=== PATIENT | female | born 1965 | race Caucasian/White ===

== ENCOUNTER → 2018-06-09 | Outpatient (CLI) | payer BC ==
[2017-09-08 12:01] VITALS: BMI 31.3
[~2018-06-09] MED LIST: ALBU2SYR19 FT; ARMTHY90PT PO; BI EST TP; BIOT5000 PO; CEPH500C24 PO; CHOL100061 PO; DOCU-416 PO; ENZY1TAB9 PO; FENOFIBRATE PO; GUAI1200 PO; HYDR2TAB74 PO; IBUP-56 PO; LEVO150T72 PO; Levofloxacin PO; MULT-67 PO; NIAC500C12 PO; ONDA4TAB PO; ONDA4TAB9 PO; OXYC-373 PO; OXYC20TA12 PO; PROG100C PO; SERT-173 PO; SERT-181 PO; SERT-184 PO; TRAM-420 PO; UBID100C9 PO; [UNRECOGNIZED DRUG - CODE] ASDIRECTED; [UNRECOGNIZED DRUG - CODE] PO; [UNRECOGNIZED DRUG - OTHER] PO; [UNRECOGNIZED DRUG - OTHER] PO; [UNRECOGNIZED DRUG - OTHER] PO; [UNRECOGNIZED DRUG - OTHER] TP
--- NOTE | 2018-06-09 18:52 | RADIOLOGY IMAGING REPORT ---
FACILITY: [facility] PATIENT NAME: Alana Garcia : 1965 MR: [id number] V: [id number] EXAM DATE: ORDERING PHYSICIAN: NAHEED WANG TECHNOLOGIST: Location: [facility] [place] Patient: Alana Garcia : 1965 Visit/Account:[id number] Date of Sevice: 06/09/2018 KIDNEYS HISTORY: Right upper quadrant pain COMPARISON: None. FINDINGS: Kidneys: Right kidney- 10.6 x 4.5 x 5.4 cm with normal parenchymal thickness and echogenicity. No ultrasound evident renal mass lesion or stone. Left kidney- 11.8 x 3.9 x 4.8 cm with normal parenchymal thickness and echogenicity. No ultrasound e vident renal mass lesion or stone. Uniform and symmetric blood flow in each kidney by Doppler ultrasound. Hydronephrosis: None. Bladder: Morphologically unremarkable. Bilateral ureteric jets visualized. There is a small post vo id residual of 19 mL.. Abdominal aorta and IVC: Patent by Doppler ultrasound. IMPRESSION: Normal renal ultrasound Report Dictated By: Juan Rico at 06/09/2018 6:48 PM Report E-Signed By: Juan Rico at 06/09/2018 6:49 PM WSN:[id number]
== END ==
LOC: US 00:16
PROVIDERS: ATTEND Urology
DX: N20.2 Calculus of kidney with calculus of ureter (principal)
CPT/HCPCS: 76705

== ENCOUNTER → 2018-06-19 | Outpatient (CLI) | payer BC ==
[2017-09-08 12:01] VITALS: BMI 31.3
[~2018-06-19] MED LIST changes: +CETI-176 PO; +HYDR-385 PO; +LIPA1CAP61 PO; +LOR5/325 PO; +OXYB10TA21 PO; +PHEN200T32 PO; +TAMS0.4C25 PO
--- NOTE | 2018-06-19 14:07 | RADIOLOGY IMAGING REPORT ---
FACILITY: [facility] PATIENT NAME: Alana Garcia : 1965 MR: [id number] V: [id number] EXAM DATE: ORDERING PHYSICIAN: NAHEED WANG TECHNOLOGIST: Location: [facility] Patient: Alana Garcia : 1965 Visit/Account:[id number] Date of Sevice: 06/19/2018 ABDOMEN/PELVIS W/O CONTRAST HISTORY: Right flank pain, history of stones TECHNIQUE: Axial images acquired through the abdomen/pelvis. Coronal and sagittal reformatting also performed. No IV contrast administered. Dose Lowering Technique One of the following dose optimization techniques was utilized in the performance of this exam: Autom ated exposure control; adjustment of the mA and/or kV according to the patient's size; or use of an i terative reconstruction technique. Specific details can be referenced in the facility's radiology C T exam operational policy. COMPARISON: September 07, 2017 FINDINGS: Visualized lung bases: There is a 9 x 8 mm noncalcified nodule in the medial aspect of the left lowe r lobe best seen on image nine of series 6. Also incompletely imaged is an 8 mm noncalcified nodule in the medial aspect the right lower lobe best seen on image one of series 6 Hepatobiliary: There are postsurgical changes from a cholecystectomy. The right lobe appears promin ent measuring 23.6 cm in length similar to the prior study. Spleen: Borderline enlarged at 13.5 cm and appears slightly more prominent when compared to the prio r study at which time the spleen measured approximately 12.1 cm in length Adrenals: Negative. Pancreas: Negative. Kidneys ureters and bladder: There is a severe right hydronephrosis and severe right hydroureter seco ndary to a 9 x 4 x 5 cm calculus in the distal right ureter just proximal to the right UVJ. Two nono bstructing calculi seen in the left renal collecting system measuring up to 3 mm. Upper pole right r enal cyst measures 1.1 cm in diameter. Additional hypodensities in the kidneys are too small to osiris acterize. The bladder is decompressed not ideally evaluated Genitalia: Prior hysterectomy GI: Small calcified appendicoliths are noted although no inflammatory change seen surrounding the ap pendix. Vessels/spaces/nodes: Negative. Bones/soft tissues: Small sclerotic focus in the left ilioischial region remain stable. 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 IMPRESSION: There is a 9 x 8 mm noncalcified nodule medial aspect left lower lobe as described above in addition to an 8 mm noncalcified nodule medial aspect of the right lower lobe. For nodules this size in a low- risk patient (minimal or absent smoking history, no history of malignancy), a 3-6 month follow-up CT is recommended, then consider CT at 18-24 months. In a high risk patient, (smoking or malignancy hist ory), a CT at 3-6 months then at 18-24 months is recommended. Spleen is borderline enlarged slightly increased in size when compared the prior study There are severe right hydronephrosis and severe right hydroureter secondary to a 9 x 4 x 5 mm calcul us in the distal right ureter just proximal to the right UVJ There are two nonobstructing calculi in the left renal collecting system Report Dictated By: Malka Núñez MD at 06/19/2018 12:52 PM Report E-Signed By: Malka Núñez MD at 06/19/2018 2:03 PM WSN:[email or web address]
== END ==
LOC: CT 11:56
PROVIDERS: ATTEND Urology
DX: N13.30 Unspecified hydronephrosis (principal); N20.2 Calculus of kidney with calculus of ureter; N28.1 Cyst of kidney, acquired; Z90.79 Acquired absence of other genital organ(s); N13.4 Hydroureter
CPT/HCPCS: 74176

== ENCOUNTER 2018-06-20 09:11 | Day surgery (SDC) | payer BC ==
[2017-09-08 12:01] VITALS: Ht 170.2 cm; Wt 91.6 kg
[~2018-06-20] VITALS: Ht 170.2 cm; Wt 91.6 kg
[~2018-06-20 09:11] MED LIST changes: +FAMOTIDINE(*) 20MG/50ML PREMIX 50 ML IVPB ONE; -HYDR-385 PO; +MIDAZOLAM 2 MG/2 ML VIAL IVP ONE; +MIDAZOLAM 2 MG/2 ML VIAL IVP PRN; +NORMOSOL R SOLN(*) 1000 ML BAG 1,000 ML IV PRN; -OXYB10TA21 PO; -PHEN200T32 PO
[2018-06-20] MEDS ORDERED: IOPAMIDOL-200 50 ML VIAL IS ONE (09:14)
[2018-06-20] MEDS ORDERED: ceFAZolin(*) 1 GM VIAL 1 GM in NS(*) 0.9% 100 ML ADDVANT BAG 100 ML IVPB ONE (09:20)
[2018-06-20] MEDS ORDERED: LIDOCAINE/SOD BICARB 8.4% SYR ID ONE (09:25)
[2018-06-20 09:35] LABS: PLATELET COUNT, AUTOMATED 228 K/uL (150-450)
[2018-06-20] MEDS ORDERED: LIDOCAINE/SOD BICARB 8.4% SYR ONE (09:39)
[2018-06-20] MEDS ORDERED: ONDANSETRON 4 MG/2 ML VIAL IVP ONE ×2 (10:02→10:05)
[2018-06-20] MEDS ORDERED: HYDROmorphone HCL 2 MG/ML SDV IVP ONE ×2 (10:02→10:05)
[2018-06-20 10:18] VITALS: BP 135/81
[2018-06-20] MEDS ORDERED: DEXAMETHASONE SOD PHOS 10MG/ML ONE (11:06)
[2018-06-20] MEDS ORDERED: PROPOFOL EMUL(*) 10MG/ML 20 ML 40 ML ONE (11:06)
[2018-06-20] MEDS ORDERED: SUCCINYLCHOL CHL 200MG/10ML VL ONE (11:06)
[2018-06-20] MEDS ORDERED: BELLADONNA ALK/OPIUM 60MG SUPP PR ONE (11:24)
[2018-06-20] MEDS ORDERED: KETOROLAC 30 MG/ML VIAL ONE (11:30)
[2018-06-20] MEDS ORDERED: HYDR-385 PO (12:08)
[2018-06-20] MEDS ORDERED: DOCU-416 PO (12:08)
[2018-06-20] MEDS ORDERED: OXYB10TA21 PO (12:11)
[2018-06-20] MEDS ORDERED: TAMS0.4C25 PO (12:13)
[2018-06-20] MEDS ORDERED: PHEN200T32 PO (12:13)
--- NOTE | 2018-06-20 12:49 | RADIOLOGY IMAGING REPORT ---
FACILITY: [facility] [place] PATIENT NAME: Alana Garcia : 1965 MR: [id number] V: [id number] EXAM DATE: ORDERING PHYSICIAN: NAHEED WANG TECHNOLOGIST: Location: [facility] [place] Patient: Alana Garcia : 1965 Visit/Account:[id number] Date of Sevice: 06/20/2018 C-ARM FLUORO 1 HR HISTORY: HEMATURIA, STONE, STENT PLACEMENT COMPARISON: Hematuria and stone. Stent placement FINDINGS: DOSE: Air kerma was 20.83 mGy. Fluoroscopic images are submitted during retrograde cannulation right ureter with placement of ureter al stent. Correlate with operative note. IMPRESSION: Right ureteral stenting Report Dictated By: Bobby Herring MD at 06/20/2018 12:17 PM Report E-Signed By: Bobby Herring MD at 06/20/2018 12:45 PM WSN:[email or web address]
--- NOTE | 2018-06-20 14:28 | HISTORY AND PHYSICAL ---
DATE OF ADMISSION: June 20, 2018 CHIEF COMPLAINT Right kidney stone. HISTORY OF PRESENT ILLNESS Patient is a 52-year-old white female who had a kidney stone originally diagnosed while she was on vacation in [place]. This was in early April. CT report revealed a 3.5 x 3.8 mm distal ureteral calculus located approximately 2.5 cm above the right UVJ with hydronephrosis and hydroureter. The patient was originally seen in the Urology Clinic on 20 of May and at that time had a normal urinalysis and was asymptomatic. A renal sonogram was set up for four weeks which was performed on the , which revealed no hydronephrosis or stones. Her urinalysis was unremarkable. She was instructed to do a metabolic evaluation. However, yesterday, she began to again experience significant right renal colic with nausea and vomiting. A CT IVP was performed which revealed a 4 x 6 x 9 mm stone with significant hydronephrosis down to the stone which was still approximately 2.5 cm above the right ureteral orifice. These findings have been discussed. She is now being brought to the operating room for planned anesthetic cystoscopy and stent placement with possibly ureteroscopy. She has been informed this stone is likely impacted and been there for at least six weeks and, therefore, this increases risk of ureteral injury and a need for percutaneous stent placement for decompression. PAST MEDICAL HISTORY * Hypothyroidism. * Chronic pancreatitis. * Depression. * Kidney stones. PAST SURGICAL HISTORY * Laparoscopy. * Hysterectomy. * Oophorectomy. * Thyroid surgery. * Cholecystectomy. CURRENT MEDICATIONS * Centrum. * Zyrtec. * Levothyroxine. * Sertraline. ALLERGIES No known drug allergies. FAMILY HISTORY Noncontributory. SOCIAL HISTORY Patient is and lives in [place], [place]. She denies illicit drug abuse. REVIEW OF SYSTEMS Patient denies chest pain, shortness of breath, nausea, vomiting, fever, chills , bleeding disorder, or gross hematuria. PHYSICAL EXAMINATION GENERAL: Patient is a well-developed, well-nourished, white female in no acute distress. HEENT: Normocephalic, atraumatic. CHEST: Clear to auscultation bilaterally. CARDIOVASCULAR: Regular rate and rhythm. ABDOMEN: Soft, nontender. No masses are palpated. GENITOURINARY: Exam is deferred to the OR. EXTREMITIES: Without clubbing, cyanosis, or edema. NEUROLOGIC: Nonfocal. IMPRESSION A 52-year-old white female with a 6 x 4 x 9 mm obstructing distal right ureteral stone which has been present for at least six weeks with likely impaction. PLAN Perform anesthetic cystoscopy, possible ureteroscopy, and/or stent placement. MTDD
--- NOTE | 2018-06-20 15:40 | OPERATIVE REPORT 1 ---
EVENT DATE: June 20, 2018 SURGEON: Bobby Garza MD ANESTHESIOLOGIST: Dionicio Watts MD ANESTHESIA: General anesthetic. PREOPERATIVE DIAGNOSIS Right distal obstructing ureteral stone measuring 6 x 4 x 9 mm. POSTOPERATIVE DIAGNOSIS Right distal obstructing ureteral stone measuring 6 x 4 x 9 mm. PROCEDURES PERFORMED 1. Cystoscopy. 2. Right retrograde pyelogram. 3. Right internal double-J ureteral stent placement. ESTIMATED BLOOD LOSS Minimal. INTRAVENOUS FLUIDS Crystalloids. DRAINS A 6-Gabonese x 26 cm Contour stent on right. COMPLICATIONS None. CONDITION Patient taken to recovery room awake, in stable condition. STATEMENT OF MEDICAL NECESSITY Patient is a 52-year-old white female who was recently diagnosed with a distal 3.8 mm stone while in [place] approximately six weeks ago. She was seen in the Urology Clinic without pain and a normal urinalysis. She had a renal ultrasound performed which was normal. However, yesterday, she experienced sudden onset of pain. CT IVP revealed a 6 x 4 x 9 mm obstructing stone in the distal left ureter approximately 2.5 cm above the ureteral orifice. She had significant hydronephrosis down to the stone. She has had continued nausea and vomiting with significant renal colic symptoms requiring narcotic control. She is unable to keep down any significant p.o. fluids and, therefore, is being brought to the operating room for decompression with possible ureteroscopy. However, she was noted to be extremely hypothyroid on her preoperative evaluation and stated that she has not been taking her thyroid replacement for approximately three months. Her current TSH is approximately 45. We will, therefore, attempt to provide just renal decompression at this time and return to the operating room in approximately three weeks after her hyperthyroidism has been addressed to definitively treat her stone. DESCRIPTION OF OPERATION PERFORMED Patient was brought to the operating room. After general anesthetic was obtained, she was placed in the dorsal lithotomy position and prepped and draped in the usual sterile manner. Anesthetic cystoscopy was performed through the 21-Gabonese rigid HMI sheath and 30-degree lens. She had slit-like ureteral orifices, both effluxing clear urine. There were no other bladder lesions. The right ureteral orifice was cannulated with a 6-Gabonese opening access catheter, and a dilute mixture of water, surgical gel, and contrast was used to perform a retrograde pyelogram. She had distal filling defect consistent with her stone and a small amount of contrast material in dilated distal ureter. A double floppy wire was then used inside the lumen of the access catheter under fluoroscopic imaging. I gently manipulated around the stone and advanced to an upper pole calyx. The access catheter was removed. A 6 x 25 stent then placed; however, the proximal end was down in the UPJ, and I felt this was going to be too short of a stent. Therefore, its distal end was grasped and brought out through the meatus. A wire was placed in its lumen. This stent was removed. The wire was then backloaded into the cystoscope, and this wire was used to place a 6-Gabonese x 26 cm Contour stent. With this, she was noted to have good curling in the renal pelvis by fluoroscopy and good curling in the bladder by direct vision. At this point, her bladder was drained through the cystoscopic sheath. A B and O suppository was given at the conclusion of the case. She was awakened in the operating room and taken to the recovery area in stable condition. PLAN The plan will be to allow the patient to be discharged home today on Colace, [place], Pyridium, Ditropan XL, Flomax, and Motrin. She is to see Dr. Fermin early next week for followup of her hyperthyroidism and will plan to return to the operating room in approximately three weeks after this has been addressed for definitive stone treatment and stent removal. [*] MARLEND
[2018-06-23] MEDS ORDERED: FAMOTIDINE 20 MG TAB PO ONE (06:30)
[2018-06-23] MEDS ORDERED: MIDAZOLAM 2 MG/2 ML VIAL IVP PRN (06:30)
[2018-06-23] MEDS ORDERED: NORMOSOL R SOLN(*) 1000 ML BAG 1,000 ML IV PRN (06:30)
[2018-06-23] MEDS ORDERED: LIDOCAINE/SOD BICARB 8.4% SYR ID ONE (06:30)
== END 2018-06-20 13:00 | disposition home or self-care (01) ==
LOC: OR 09:11
PROVIDERS: ATTEND Urology
DX: N20.1 Calculus of ureter (principal); E78.00 Pure hypercholesterolemia, unspecified
CPT/HCPCS: 36415; 52005; 52332; 76000; 81001; 84443; 85025; 87088; J0330; J0690; J1100; J1170; J1885; J2250; J2405; J2704; J3490; J7050; Q9966; 82040; 82247; 82310; 82374; 82435; 82565; 82947; 84075; 84132; 84155; 84295; 84450; 84460; 84520

== ENCOUNTER 2018-07-10 00:02 | Day surgery (SDC) | payer BC ==
[2017-09-08 12:01] VITALS: Ht 171.4 cm; Wt 90.3 kg
[2018-07-08 15:21] LABS: PLATELET COUNT, AUTOMATED 234 K/uL (150-450)
--- NOTE | 2018-07-09 14:17 | HISTORY AND PHYSICAL ---
DATE OF ADMISSION: July 10, 2018 CHIEF COMPLAINT Right kidney stone with indwelling stent. HISTORY OF PRESENT ILLNESS The patient is a 52-year-old white female who was originally diagnosed with kidney stones while she was in [place] in April of this last year. When seen in the urology clinic her urinalysis was normal and she was asymptomatic. A renal ultrasound was performed on the 17 of June which revealed no hydronephrosis or kidney stones. She also had had an unremarkable urinalysis at that time. However, on the 19 of June, she experienced sudden onset of right flank pain with nausea and vomiting. CT scan revealed a 4 by 6 by 9 mm stone, approximately 2.5 cm above the right ureteral orifice with hydronephrosis. At that time she was taken to the operating room and underwent right double-J ureteral stent placement. She was also significantly hypothyroid at that point with a TSH of 45 and had been off her thyroid replacement for some time. Since then, she has resumed her thyroid replacement and has been cleared for surgery by Dr. Dubon her primary care physician. She is now being brought to the operating room for planned right ureteroscopy, exploratory laparoscopy, ESWL, and possible stent removal and/or replacement. PAST MEDICAL HISTORY * Hypothyroidism. * Chronic idiopathic pancreatitis. * Depression. * Kidney stones. PAST SURGICAL HISTORY * Laparoscopy. * Hysterectomy. * Oophorectomy. * Thyroid surgery. * Cholecystectomy. * Right ureteral stent placement. CURRENT MEDICATIONS * Levothyroxine. * Zyrtec. * Sertraline. * Multivitamins. ALLERGIES No known drug allergies. FAMILY HISTORY Noncontributory. REVIEW OF SYSTEMS The patient denies chest pain, shortness of breath, nausea, vomiting, fever, chills, productive cough, or bleeding disorders. PHYSICAL EXAMINATION GENERAL: The patient is a well-developed, well nourished white female in no acute distress. HEENT: Normocephalic/atraumatic. CHEST: Clear to auscultation bilaterally. CV: Regular rate and rhythm. ABDOMEN: Soft, nontender. No masses palpated. : Deferred to OR. EXTREMITIES: Without clubbing, cyanosis or edema. NEURO: Nonfocal. ASSESSMENT This is a 52-year-old white female with a distal 9 by 6 by 4 mm ureteral stone with indwelling ureteral stent. She is also noted to have two small stones in the left collecting system, one measuring 2 mm, and one measuring 3 mm. PLAN We will perform exploratory lithotripsy with possible stent removal and/or ureteroscopy. MARTY
[~2018-07-10] VITALS: Ht 171.4 cm; Wt 90.3 kg
[~2018-07-10 00:02] MED LIST changes: -FAMOTIDINE(*) 20MG/50ML PREMIX 50 ML IVPB ONE; +HYDR-385 PO; +HYDROmorphone HCL 2 MG/ML SDV IVP ONE; -MIDAZOLAM 2 MG/2 ML VIAL IVP ONE; -MIDAZOLAM 2 MG/2 ML VIAL IVP PRN; +MULT-67; -NORMOSOL R SOLN(*) 1000 ML BAG 1,000 ML IV PRN; +ONDANSETRON 4 MG/2 ML VIAL IVP ONE; +OXYB10TA21 PO; +PHEN200T32 PO
[2018-07-10] MEDS ORDERED: ceFAZolin(*) 1 GM VIAL 1 GM in NS(*) 0.9% 100 ML ADDVANT BAG 100 ML IVPB ONE (08:10)
[2018-07-10] MEDS ORDERED: NORMOSOL R SOLN(*) 1000 ML BAG 1,000 ML IV PRN (08:10)
[2018-07-10] MEDS ORDERED: MIDAZOLAM 2 MG/2 ML VIAL IVP PRN (08:10)
[2018-07-10] MEDS ORDERED: ceFAZolin(*) 1 GM VIAL 1 GM, GENTAMICIN(*) 80 MG/2 ML VIAL 60 MG in NS 0.9% IRRIGATION ... IR ONE (08:10)
[2018-07-10] MEDS ORDERED: FAMOTIDINE 20 MG TAB PO ONE (08:10)
[2018-07-10] MEDS ORDERED: LIDOCAINE/SOD BICARB 8.4% SYR ID ONE (08:10)
[2018-07-10] MEDS ORDERED: ONDANSETRON 4 MG/2 ML VIAL ONE (09:23)
[2018-07-10] MEDS ORDERED: fentaNYL CITR 100 MCG/2 ML AMP ONE (09:23)
[2018-07-10] MEDS ORDERED: LIDOCAINE MPF 1% 5 ML VIAL ONE (09:23)
[2018-07-10] MEDS ORDERED: PROPOFOL EMUL(*) 10MG/ML 20 ML 20 ML ONE (09:23)
[2018-07-10] MEDS ORDERED: DEXAMETHASONE SOD PHOS 10MG/ML ONE (09:23)
[2018-07-10] MEDS ORDERED: KETOROLAC 30 MG/ML VIAL ONE (09:23)
[2018-07-10 09:34] VITALS: BP 122/78
[2018-07-10] MEDS ORDERED: KETAMINE HCL-NS 50 MG/5 ML SYR ONE (10:13)
--- NOTE | 2018-07-10 10:29 | RADIOLOGY IMAGING REPORT ---
FACILITY: [facility] PATIENT NAME: Alana Garcia : 1965 MR: [id number] V: [id number] EXAM DATE: ORDERING PHYSICIAN: NAHEED WANG TECHNOLOGIST: Location: [facility] Patient: Alana Garcia : 1965 Visit/Account:[id number] Date of Sevice: 07/08/2018 ABDOMEN PELVIS ESWL CYSTO W/O HISTORY: PREOP kidney stones TECHNIQUE: Axial images acquired through the abdomen/pelvis. Coronal and sagittal reformatting also performed. No IV contrast administered. Dose Lowering Technique One of the following dose optimization techniques was utilized in the performance of this exam: Autom ated exposure control; adjustment of the mA and/or kV according to the patient's size; or use of an i terative reconstruction technique. Specific details can be referenced in the facility's radiology C T exam operational policy. COMPARISON: June 19, 2018 FINDINGS: Visualized lung bases: The previously described 9 x 8 mm noncalcified nodule medial aspect left lowe r lobe was not included on today's image slices nor was the 8 mm calcified nodule medial aspect right lower lobe Hepatobiliary: There are postsurgical changes from a cholecystectomy. Again noted is a prominent ri ght hepatic lobe Spleen: Borderline enlarged but unchanged Adrenals: Negative. Pancreas: Negative. Kidneys ureters and bladder: Since the prior examination there has been placement of a right ureteral stent with resolution of the previously noted right hydronephrosis and right hydroureter. The proxi mal pigtail of the stent is approximately 4 cm distal to the right renal pelvis. The previously note d 9 x 4 x 5 mm calculus in the distal right ureter is relatively unchanged in position and is best se en on axial image 368 of series 5 and sagittal image 95 of series 3 Nonobstructing calculi in the inferior left renal collecting system again noted measuring up to 3 mm Renal hypodensities remain unchanged. The bladder is mostly decompressed Genitalia: Prior hysterectomy GI: Calcified appendicoliths are noted with no surrounding inflammatory change. No evidence of betzy l obstruction or bowel wall thickening Vessels/spaces/nodes: Negative. 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 Sm all squatted focus left ilioischial region remain stable Additional findings: None pertinent. IMPRESSION: Previously noted pulmonary nodules were not included on the study Poorly spinal megaly unchanged There has been placement of a right ureteral stent since the prior study with interval resolution of the right hydronephrosis and right hydroureter. The proximal pigtail the stent is approximate 4 cm d istal to the right renal pelvis The previously noted 9 x 4 x 5 mm calculus in the distal right ureter is relatively unchanged in posi tion as described above Nonobstructing left renal calculi Additional chronic findings as described Report Dictated By: Malka Núñez MD at 07/10/2018 10:07 AM Report E-Signed By: Malka Núñez MD at 07/10/2018 10:24 AM KDN:[email or web address]
[2018-07-10] MEDS ORDERED: NS 0.9% 3000 ML IRRIGATION BAG IR ONE (10:53)
[2018-07-10] MEDS ORDERED: BELLADONNA ALK/OPIUM 60MG SUPP PR ONE (10:59)
[2018-07-10] MEDS ORDERED: HYDR-385 PO (12:05)
[2018-07-10] MEDS ORDERED: DOCU-416 PO (12:05)
[2018-07-10] MEDS ORDERED: IBUP600T22 PO (12:06)
[2018-07-10] MEDS ORDERED: PHEN200T32 PO (12:06)
[2018-07-10] MEDS ORDERED: TAMS0.4C25 PO (12:07)
[2018-07-10] MEDS ORDERED: OXYB10TA21 PO (12:08)
[2018-07-10] MEDS ORDERED: OXYBUTYNIN CHL XL 5 MG TABCR PO ONE (12:21)
--- NOTE | 2018-07-10 13:02 | OPERATIVE REPORT 1 ---
EVENT DATE: July 10, 2018 SURGEON: Bobby Garza MD ANESTHESIOLOGIST: Wilian Yung MD ANESTHESIA: General. PREOPERATIVE DIAGNOSIS Right Ureteral Stone with Stent POSTOPERATIVE DIAGNOSIS Same PROCEDURE PERFORMED 1. Cystoscopy. 2. Grasping and removal of right double-J ureteral stent. 3. Right semi-rigid ureteroscopy with laser fragmentation of a distal right ureteral stone. 4. Grasping and removal of stone fragment times one. 5. Replacement of right internal double-J ureteral stent. ESTIMATED BLOOD LOSS Minimal. IV FLUIDS Crystalloids. DRAINS A 6-German x 28 cm Contour stent on right. PATHOLOGY Small fragment grasped sent for permanent analysis. COMPLICATIONS None. CONDITION Patient taken to the recovery room, awake and in stable condition. STATEMENT OF MEDICAL NECESSITY Patient is a 52-year-old white female with recent history of kidney stones who again developed significant right flank pain with hydronephrosis on the May. At that time, she was taken to the operating room and underwent right ureteral stent placement. She is now being returned for follow definitive treatment. DESCRIPTION OF PROCEDURE PERFORMED The patient was brought to the operating room. After general anesthetic was obtained, she was placed in the dorsal lithotomy position and prepped and draped in the usual sterile manner. Anesthetic cystoscopy was performed using a 21- German rigid Trivedi sheath and 30-degree lens. The stent was seen emanating from her right ureter orifice. It was Pyridium stained, but there was no evidence of encrustation. The distal end was grasped and brought out through the meatus. The lumen was then cannulated with a 0.035 double floppy type wire which was advanced in a retrograde manner to the renal pelvis. The stent was then removed, and this wire was used to place an 8/10 dilating system. A second wire was placed along side the first wire inside the 10 sheath. The 10 sheath was removed. One wire was secured to the drapes as a safety wire. The next wire was used as a working wire for the Trivedi semirigid ureteroscope. Ureteroscopy was performed over the wire under direct visualization with the aid of the camera and introduced into the distal ureter without undo resistance. The stone was encountered approximately 6 cm above the ureteral orifice. It was dark yellow in appearance with an irregular surface, and oblong in shape. At this point, the Holmium laser fiber of size 358 was introduced. Using the long fragmentation testing mode, the stone was treated under direct vision. The stone was quite soft and was easily dusted over the course of approximately 10 minutes. There was one remaining fragment which was approximately 2 mm in size, which migrated proximally up to the proximal level of the vessels. At this point, the laser fiber was removed the cystoscope and a Tricep grasping forceps were introduced. This small fragment was incaged and brought out the ureter and dropped into the bladder. The scope was then reintroduced and a ureteroscopy of the distal ureter was performed. There was no evidence of ureteral trauma or injury, or no remaining fragments except for dust like pieces. At this point, the ureteroscope was removed under direct vision. The safety wire was then back-loaded into the scope and used to place a 6 x 26 cm stent. However, the stent appeared to be too short with a coiling at the distal UPJ area. Therefore, the distal end of this was grasped and the end was cannulated to replace the wire, then this wire was used to place a 6 x 28 cm Contour stent by fluoroscopy after the wire was pulled. She had good coiling in the renal pelvis and good coiling in the bladder by direct vision. At this point, the bladder was drained to the cystoscopic sheath. The small stone was collected in the drapes and sent for analysis. A B and O suppository was given at the conclusion of the case. The patient was awakened in the operating room and taken to the recovery area in stable condition. PLAN The plan will be to allow the patient to be discharged home today on Colace, [place], Pyridium, Flomax, Ditropan XL, and Motrin. We will plan to see her in the urology clinic in approximately 10 days to remove her stent, and to proceed with metabolic evaluation. MARTY
--- NOTE | 2018-07-10 13:38 | RADIOLOGY IMAGING REPORT ---
FACILITY: [facility] PATIENT NAME: Alana Garcia : 1965 MR: [id number] V: [id number] EXAM DATE: ORDERING PHYSICIAN: NAHEED WANG TECHNOLOGIST: Location: [facility] Patient: Alana Garcia : 1965 Visit/Account:[id number] Date of Sevice: 07/10/2018 Exam type: C-ARM FLUORO 1 HR History: HEMATURIA Comparison: CT abdomen pelvis July 08, 2018. Findings: 24 intraoperative fluoroscopic spot views of the abdomen and pelvis were submitted. The fluoroscopy time was 0.28 minutes. The fluoroscopy dose was 26.43 mGray. Multiple images demonstrate removal of the existing right ureteral stent. On the original image the distal right ureteral calculus is note d projecting over the right ureteral stent.. A ureteroscope is noted in addition to a guidewire. On the final images a new right ureteral stent was placed. There is a faint radiopaque material identi fied projecting over the lower pole the right kidney which may represent the distal right ureteral ca lculus which was pushed cephalad IMPRESSION: 1. As above Report Dictated By: Malka Núñez MD at 07/10/2018 11:47 AM Report E-Signed By: Malka Núñez MD at 07/10/2018 1:33 PM WSN:[email or web address]
== END 2018-07-10 12:30 | disposition home or self-care (01) ==
LOC: OR 00:02
PROVIDERS: ATTEND Urology
DX: N20.1 Calculus of ureter (principal); E03.9 Hypothyroidism, unspecified; F32.9 Major depressive disorder, single episode, unspecified; K86.1 Other chronic pancreatitis; Z90.710 Acquired absence of both cervix and uterus; Z90.49 Acquired absence of other specified parts of digestive tract; E78.5 Hyperlipidemia, unspecified
CPT/HCPCS: 36415; 52332; 52352; 74176; 76000; 81001; 82365; 84443; 85025; 87088; 88300; 94667; C1769; C1894; C2617; J0690; J1100; J1885; J2001; J2250; J2405; J2704; J3010; J3490; J7050; 82040; 82247; 82310; 82374; 82435; 82565; 82947; 84075; 84132; 84155; 84295; 84450; 84460; 84520

== ENCOUNTER → 2018-09-05 | Outpatient (CLI) | payer BC ==
[2017-09-08 12:01] VITALS: BMI 31.3
[~2018-09-05] MED LIST changes: -HYDROmorphone HCL 2 MG/ML SDV IVP ONE; +IBUP600T22 PO; -ONDANSETRON 4 MG/2 ML VIAL IVP ONE
--- NOTE | 2018-09-05 09:24 | RADIOLOGY IMAGING REPORT ---
FACILITY: [facility] [place] PATIENT NAME: Alana Garcia : 1965 MR: [id number] V: [id number] EXAM DATE: ORDERING PHYSICIAN: NAHEED WANG TECHNOLOGIST: Location: [facility] Patient: Alana Garcia : 1965 Visit/Account:[id number] Date of Sevice: 09/05/2018 KIDNEYS HISTORY: Renal stones COMPARISON: CT dated July 08, 2018. FINDINGS: Kidneys: Right kidney- 9.8 x 4.2 x 6.7 cm with normal parenchymal thickness and echogenicity. No visualized n ephrolithiasis. Left kidney- 11.4 x 4.5 x 4.3 cm cm with normal parenchymal thickness and echogenicity. No visualize d nephrolithiasis. Uniform and symmetric blood flow in each kidney by Doppler ultrasound. Hydronephrosis: None. Bladder: Unremarkable. Abdominal aorta and IVC: Patent by Doppler ultrasound. IMPRESSION: No definitive urolithiasis identified. No hydronephrosis. Report Dictated By: Branden Garcia MD at 09/05/2018 9:17 AM Report E-Signed By: Branden Garcia MD at 09/05/2018 9:19 AM WSN:[email or web address]
== END ==
LOC: US 04:11
PROVIDERS: ATTEND Urology
DX: N20.0 Calculus of kidney (principal)
CPT/HCPCS: 76705

== ENCOUNTER → 2018-09-15 | Outpatient (REF) | payer BC ==
[2017-09-08 12:01] VITALS: BMI 31.3
== END ==
LOC: ZZSENDIN 14:07
PROVIDERS: ATTEND Family Medicine
DX: E03.9 Hypothyroidism, unspecified (principal)
CPT/HCPCS: 84439; 84443; 84480